=== PATIENT | male | born 1980 | race Caucasian/White ===

== ENCOUNTER 2017-05-11 16:16 | Outpatient (CLI) | payer OTHER ==
--- NOTE | 2017-05-11 18:07 | MRI Report ---
EXAM: RIGHT HIP MRI WITHOUT CONTRAST EXAM DATE: 05/11/2017 05:03 PM. CLINICAL HISTORY: Right hip pain for 8 months after running on treadmill. COMPARISON: None. TECHNIQUE: Multiplanar, multisequence T1-weighted and fluid-sensitive, small [id number] sequences of the hip and large [id number] sequences of the pelvis without contrast. Other: None. FINDINGS: Bones: Small osseous bumps at the anterosuperior aspects of the left and right femoral head-neck junc tions. No acute fracture or osteonecrosis. Right Hip: No acetabular retroversion. Slightly diminished bilateral femoral head-neck offset. No eff usion or loose bodies. The articular cartilage is intact. The labrum is unremarkable on this nonarthr ographic study. The ligamentum teres is intact. Other Joints: The visualized lumbar spine, sacroiliac joints, symphysis pubis, and contralateral hip are unremarkable. Musculature: No edema or fatty atrophy. The gluteus medius and minimus tendons are normal. The visua lized hamstring tendons are normal. The ischiofemoral space is normal. Pelvic Cavity: The visualized viscera are unremarkable. No lymphadenopathy. No free fluid in the pelv is. Other: The visualized sciatic nerves are unremarkable. No bursitis. The subcutaneous tissues are unre markable. IMPRESSION: 1. Small osseous bumps at the anterosuperior aspects of the left and right femoral head-neck junction s which causes slight diminished bilateral femoral head-neck offset. This may cause bilateral cam-typ e femoroacetabular impingement. 2. Otherwise, unremarkable right hip MRI without contrast. [facility] Referring Provider Line: [phone] SITE ID: [id number]
== END 2017-05-11 16:17 | disposition home or self-care (01) ==
LOC: DI 16:16
PROVIDERS: ATTEND Orthopaedic Surgery
DX: M89.8X8 Other specified disorders of bone, other site (principal)